=== PATIENT | female | born 1985 | race Caucasian/White ===

== ENCOUNTER → 2024-02-07 16:36 | Outpatient (REF) | payer OTHER, SELFPAY | LOC: PNTC 16:36 | PROVIDERS: ATTENDING PHYSICIAN Obstetrics & Gynecology | DX: Z36.0 Encounter for antenatal screening for chromosomal anomalies (principal); Z36.82 Encounter for antenatal screening for nuchal translucency | CPT/HCPCS: 76801; 76813 ==

== ENCOUNTER → 2024-03-06 10:23 | Outpatient (REF) | payer OTHER, SELFPAY | LOC: PNTC 10:23 | PROVIDERS: ATTENDING PHYSICIAN Obstetrics & Gynecology | DX: O99.210 Obesity complicating pregnancy, unspecified trimester (principal); O09.519 Supervision of elderly primigravida, unspecified trimester | CPT/HCPCS: 76805 ==

== ENCOUNTER → 2024-04-08 09:40 | Outpatient (REF) | payer OTHER, SELFPAY | LOC: PNTC 09:40 | PROVIDERS: ATTENDING PHYSICIAN Obstetrics & Gynecology | DX: O09.519 Supervision of elderly primigravida, unspecified trimester (principal); O99.210 Obesity complicating pregnancy, unspecified trimester | CPT/HCPCS: 76811 ==

== ENCOUNTER → 2024-05-15 16:52 | Outpatient (REF) | payer OTHER, SELFPAY | LOC: PNTC 16:52 | PROVIDERS: ATTENDING PHYSICIAN Obstetrics & Gynecology | DX: O09.529 Supervision of elderly multigravida, unspecified trimester (principal); O99.210 Obesity complicating pregnancy, unspecified trimester | CPT/HCPCS: 76816 ==

== ENCOUNTER → 2024-06-26 15:58 | Outpatient (REF) | payer OTHER, SELFPAY | LOC: PNTC 15:58 | PROVIDERS: ATTENDING PHYSICIAN Obstetrics & Gynecology | DX: O09.529 Supervision of elderly multigravida, unspecified trimester (principal); O99.210 Obesity complicating pregnancy, unspecified trimester | CPT/HCPCS: 76816 ==

== ENCOUNTER → 2024-07-09 16:11 | Outpatient (REF) | payer OTHER, SELFPAY | LOC: PNTC 16:11 | PROVIDERS: ATTENDING PHYSICIAN Obstetrics & Gynecology | DX: O09.529 Supervision of elderly multigravida, unspecified trimester (principal); O99.210 Obesity complicating pregnancy, unspecified trimester | CPT/HCPCS: 59025; 76815 ==

== ENCOUNTER → 2024-07-16 16:40 | Outpatient (REF) | payer OTHER, SELFPAY | LOC: PNTC 16:40 | PROVIDERS: ATTENDING PHYSICIAN Obstetrics & Gynecology | DX: O09.519 Supervision of elderly primigravida, unspecified trimester (principal); O99.210 Obesity complicating pregnancy, unspecified trimester | CPT/HCPCS: 59025; 76815 ==

== ENCOUNTER → 2024-07-23 16:06 | Outpatient (REF) | payer OTHER, SELFPAY | LOC: PNTC 16:06 | PROVIDERS: ATTENDING PHYSICIAN Obstetrics & Gynecology | DX: O09.529 Supervision of elderly multigravida, unspecified trimester (principal); O99.210 Obesity complicating pregnancy, unspecified trimester | CPT/HCPCS: 59025; 76816 ==

== ENCOUNTER → 2024-07-30 15:59 | Outpatient (REF) | payer OTHER, SELFPAY | LOC: PNTC 15:59 | PROVIDERS: ATTENDING PHYSICIAN Obstetrics & Gynecology | DX: O09.529 Supervision of elderly multigravida, unspecified trimester (principal); O99.210 Obesity complicating pregnancy, unspecified trimester | CPT/HCPCS: 59025; 76815 ==

== ENCOUNTER → 2024-08-06 16:00 | Outpatient (REF) | payer OTHER, SELFPAY | LOC: PNTC 16:00 | PROVIDERS: ATTENDING PHYSICIAN Obstetrics & Gynecology | DX: O09.529 Supervision of elderly multigravida, unspecified trimester (principal); O99.210 Obesity complicating pregnancy, unspecified trimester | CPT/HCPCS: 59025; 76815 ==

== ENCOUNTER 2024-08-13 12:30 | Inpatient (IN) | payer OTHER, SELFPAY ==
[2024-08-13 12:33] VITALS: BP 114/69; BMI 35.6
[2024-08-13 13:15] LABS: % Basophils 0.3 % (0-2); % Eosinophils 0.9 % (0-6); % Immature Granulocytes 0.3 % (0-0.5); % Lymphocytes 18.9 % (20.5-51.1); % Monocytes 5.3 % (1.7-9.3); % Neutrophils 74.3 % (42.2-75.2); Absolute Eosinophils 0.1 10^3/uL (0-0.7); Absolute Lymphocytes 1.6 10^3/uL (1.2-3.4); Absolute Monocytes 0.5 10^3/uL (0.1-0.6); Absolute Neutrophils 6.5 10^3/uL (1.4-6.5); Hematocrit 33.4 % (37.0-47.0); Hemoglobin 11.1 g/dL (12.0-16.0); Mean Corp Hgb Conc. 33.2 g/dL (33.0-37.0); Mean Corpuscular Hgb 27.3 pg (27.0-31.0); Mean Corpuscular Volume 82.1 fL (81.0-99.0); Mean Platelet Volume 10.2 fL (7.4-10.4); Nucleated Red Blood Cells % 0 %; Platelet Count 223 10^3/uL (130-400); Red Blood Cell Count 4.07 10^6/uL (4.20-5.40); White Blood Cell Count 8.7 10^3/uL (4.8-10.8)
[2024-08-13] MEDS: LR 1000 IV ×2 (14:49→23:23)
[2024-08-13] MEDS: PITOCIN 30 UNITS/NSS 500 ML IV (14:50)
[2024-08-13] MEDS: SUBLIMAZE 100 MCG EPIDURAL (19:27)
[2024-08-13] MEDS: FENTANYL/BUPIVACAINE 100 EPIDURAL (19:27)
[2024-08-13] MEDS: ZOFRAN 4 MG IV (20:31)
[2024-08-13] MEDS: TUMS CHEWABLE TABLET 400 MG PO (21:51)
[2024-08-14] MEDS: TYLENOL 650 MG PO ×3 (02:06→20:37)
[2024-08-14 06:47] LABS: Hematocrit 32.3 % (37.0-47.0); Hemoglobin 10.5 g/dL (12.0-16.0)
[2024-08-14] MEDS: PRENATAL PLUS 1 TABLET PO (08:27)
[2024-08-14] MEDS: MOTRIN 600 MG PO (09:49)
[2024-08-14] MEDS: SENOKOT-S 1 TABLET PO (20:10)
[2024-08-15] MEDS: MOTRIN 600 MG PO ×3 (00:31→13:08)
[2024-08-15] MEDS: PRENATAL PLUS 1 TABLET PO (08:39)
--- NOTE | 2024-08-15 09:29 | W.PN.ANES ---
Anesthesia Note
- -
08/15/24 09:29
CTSP with some right lateral calf tingling and sensitivity 1 out of 10 2 days post epidural. Motor function intact. No fever chills back pain. May have been positioning during delivery or trauma during epidural. Should resolve over next few days if
not pt instructed to follow up with Dr Yoon for possible neurology referral. Pt and spouse seemed to understand and accept recommendations.
[2024-08-15] MEDS: TYLENOL 650 MG PO (13:08)
[2024-08-15 15:43] LABS: Syphilis/T. pallidum Ab Reflex Negative (Negative)
== END 2024-08-15 14:01 | disposition home or self-care (01) | DRG 806 ==
LOC: LDRP 12:30
PROVIDERS: ADMITTING PHYSICIAN Obstetrics & Gynecology; ATTENDING PHYSICIAN Obstetrics & Gynecology
PROC: 3E033VJ Introduction of Other Hormone into Peripheral Vein, Percutaneous Approach (ICD-10-PCS; 2024-08-13)
PROC: 10E0XZZ Delivery of Products of Conception, External Approach (ICD-10-PCS; 2024-08-14)
PROC: 0UQGXZZ Repair Vagina, External Approach (ICD-10-PCS; 2024-08-14)
PROC: 4A1HXCZ Monitoring of Products of Conception, Cardiac Rate, External Approach (ICD-10-PCS; 2024-08-14)
DX: O76 Abnormality in fetal heart rate and rhythm complicating labor and delivery (principal); O71.4 Obstetric high vaginal laceration alone; Z37.0 Single live birth; O69.81X0 Labor and delivery complicated by cord around neck, without compression, not applicable or unspecified; Z3A.39 39 weeks gestation of pregnancy
CPT/HCPCS: 36415; 83789; 85014; 85018; 85025; 86780; 86850; 86900; 86901